=== PATIENT | female | born 1995 | race Caucasian/White ===

== ENCOUNTER 2016-10-27 19:14 | Emergency (ER) | payer OTHER ==
[2016-10-27 19:32] VITALS: BP 124/76
--- NOTE | 2016-10-27 20:42 | UC ---
Throat Pain/Nasal Lui HPI - History of Current Complaint Chief Complaint: UCRespiratory Stated Complaint: SORE THROAT Time Seen by Provider: 10/27/16 20:34 Hx Obtained From: Patient Hx Last Menstrual Period: 10/09/16 ?: No Onset/Duration: Sudden Onset, Lasting Days - 3, Worse Since - yesterday. Severity: Moderate Cough: Nonproductive Associated Signs & Symptoms: Positive: Dysphagia, Hoarseness, Fever. Negative: Sinus Discomfort, Nasal Discharge, Rash - Epiglottits Risk Factors Epiglottis Risk Factors: Negative - Allergies/Home Medications Allergies/Adverse Reactions: Allergies Allergy/AdvReac Type Severity Reaction Status Date / Time No Known Allergies Allergy Verified 10/27/16 19:32 Home Medications: Home Medications Amphetamine-Dextroamphetamine [Adderall 10 mg-] 1 tab PO 0700 10/27/16 [History Confirmed 10/27/16] Amphetamine-Dextroamphetamine [Adderall 10 mg-] 2 tab PO 1200 10/27/16 [History Confirmed 10/27/16] PMH/Surg Hx/FS Hx/Imm Hx Endocrine History Of: Reports: Thyroid Disease - hypothyroid - Surgical History Surgical History: Yes Surgery Procedure, Year, and Place: left ACL repair - Family History Known Family History: Positive: Diabetes Negative: Cardiac Disease, Hypertension - Social History Occupation: Student Lives: Alone Alcohol Use: Weekly Substance Use Type: None Smoking Status (MU): Never Smoked Tobacco Review of Systems Constitutional: Fever ENT: Sore Throat Respiratory: Cough All Other Systems Reviewed And Are Negative: Yes Physical Exam Triage Information Reviewed: Yes Appearance: No Pain Distress, Well-Nourished, Ill-Appearing - mildly Vital Signs: Initial Vital Signs Temp 98.1 F 10/27/16 19:26 Pulse 56 10/27/16 19:26 Resp 12 10/27/16 19:26 BP 124/76 10/27/16 19:26 Pulse Ox 96 10/27/16 19:26 Vital Signs Reviewed: Yes Eye Exam: Normal ENT: Positive: Pharynx normal, TMs normal Neck exam: Normal Respiratory: Positive: Lungs clear Cardiovascular Exam: Normal Musculoskeletal Exam: Normal Neurological Exam: Normal Psychological Exam: Normal Skin Exam: Normal Throat Pain/Nasal Course/Dx - Differential Dx/Diagnosis Differential Diagnosis/HQI/PQRI: Laryngitis, Pharyngitis, URI Provider Diagnoses: Acute URI. Acute laryngitis. Discharge - Discharge Plan Condition: Stable Disposition: HOME Prescriptions: predniSONE TAB* [Deltasone TAB*] 20 mg PO DAILY #18 tab Patient Education Materials: Upper Respiratory Infection (ED), Laryngitis (ED) , Prednisone (By mouth)
[2016-10-27] MEDS ORDERED: predniSONE TAB* 20 MG PO ONE (20:44)
== END 2016-10-27 20:51 | disposition home or self-care (01) ==
LOC: UCCORT 19:14
DX: J06.9 Acute upper respiratory infection, unspecified (principal); J04.0 Acute laryngitis
CPT/HCPCS: 87651; 99212; G0463; J7512

== ENCOUNTER 2018-11-25 16:25 | Emergency (ER) | payer OTHER ==
[2018-11-25 17:26] VITALS: BP 119/72
[2018-11-25 17:42] LABS: Influenza B Molecular POSITIVE (Negative)
--- NOTE | 2018-11-25 18:52 | UC ---
FLU HPI - HPI Summary HPI Summary: Patient has been ill since yesterday with flulike symptoms, fever, chills, body aches, sore throat, dry cough. Patient states that she has had mononucleosis 5 times in the past and has a chronic pain around the spleen area. She states she is under a doctor's care for this and is actually scheduled for a sonogram in the next few days of that area. She states today that hurts a little more than usual. - History of Current Complaint Chief Complaint: UCGeneralIllness Stated Complaint: HEADACHE COUGH ACHY Time Seen by Provider: 11/25/18 17:21 Hx Obtained From: Patient Hx Last Menstrual Period: 10/2018 ?: No Onset/Duration: Sudden Onset Severity Currently: Moderate Severity Initially: Moderate Pain Intensity: 4 Pain Scale Used: 0-10 Numeric Associated Signs & Symptoms: Positive: Fever, Myalgia, Cough, Sore Throat, Nasal Congestion, Headache Related Hx: Possible Flu/Infectious Exposure - Allergy/Home Medications Allergies/Adverse Reactions: Allergies Allergy/AdvReac Type Severity Reaction Status Date / Time No Known Allergies Allergy Verified 11/25/18 17:24 Home Medications: Home Medications D-Methorphan/PE/Acetaminophen [Daytime Cold-Flu Liquid] 1 dose PO ONCE PRN 11/25 [History Confirmed 11/25/18] Escitalopram * [Lexapro *] 15 mg PO DAILY 11/25/18 [History Confirmed 11/25/18] PMH/Surg Hx/FS Hx/Imm Hx Previously Healthy: Yes - Surgical History Surgical History: Yes Surgery Procedure, Year, and Place: left ACL repair. wisdom teeth - Family History Known Family History: Positive: Diabetes Negative: Cardiac Disease, Hypertension - Social History Occupation: Student Alcohol Use: Occasionally Substance Use Type: Marijuana Substance Use Comment - Amount & Last Used: occasional Smoking Status (MU): Never Smoked Tobacco Review of Systems All Other Systems Reviewed And Are Negative: Yes Constitutional: Positive: Fever, Chills ENT: Positive: Sore Throat, Nasal Discharge Respiratory: Positive: Cough - Dry cough Musculoskeletal: Positive: Myalgia Is Patient Immunocompromised?: No Physical Exam Triage Information Reviewed: Yes Appearance: No Pain Distress, Well-Nourished, Ill-Appearing Vital Signs: Initial Vital Signs Temp 101.6 F 11/25/18 17:22 Pulse 111 11/25/18 17:22 Resp 18 05/01/19 17:22 BP 119/72 11/25/18 17:22 Pulse Ox 100 11/25/18 17:22 Vital Signs Reviewed: Yes Eye Exam: Normal ENT: Positive: Hearing grossly normal, Pharynx normal, Nasal congestion, Nasal drainage, TMs normal, Uvula midline Neck: Positive: Supple, Nontender, No Lymphadenopathy Respiratory: Positive: Lungs clear, Normal breath sounds, No respiratory distress, No accessory muscle use Cardiovascular: Positive: No Murmur, Pulses Normal, Brisk Capillary Refill, Tachycardia Abdomen Description: Positive: Nontender, No Organomegaly, Soft Bowel Sounds: Positive: Present Musculoskeletal Exam: Normal Neurological Exam: Normal Psychological Exam: Normal Skin Exam: Normal Flu Course/Dx - Course Course Of Treatment: Rapid flu test was positive for influenza B. I would treat patient with Tamiflu. No work until Friday. - Differential Dx/Diagnosis Provider Diagnosis: Influenza Discharge - Sign-Out/Discharge Documenting (check all that apply): Patient Departure All imaging exams completed and their final reports reviewed: No Studies - Discharge Plan Condition: Fair Disposition: HOME Prescriptions: Oseltamivir CAP* [Tamiflu CAP*] 75 mg PO BID 5 Days #10 cap Patient Education Materials: Influenza (DC) Referrals: [facility] [Outside] No Primary Care Phys,NOPCP [Primary Care Provider] - Additional Instructions: Go home and rest, increase fluids, may take Tylenol every 4 hours and Motrin every 8 hours with food. Follow up at your primary care provider's or [facility] if no improvement in 3 or 4 days. Go to the emergency room for any worsening symptoms. - Billing Disposition and Condition Condition: FAIR Disposition: Home
== END 2018-11-25 17:56 | disposition home or self-care (01) ==
LOC: UCCORT 16:25
DX: J11.1 Influenza due to unidentified influenza virus with other respiratory manifestations (principal); R05 Cough; R50.9 Fever, unspecified; M79.10 Myalgia, unspecified site; R09.81 Nasal congestion
CPT/HCPCS: 99212; G0463

== ENCOUNTER 2018-11-30 20:18 | Emergency (ER) | payer OTHER ==
[2018-11-30 20:39] VITALS: BP 123/85
[2018-11-30] MEDS ORDERED: Albuterol 2.5 MG/3 ML NEB.SOL* (0.083%) INH ONE (20:44)
--- NOTE | 2018-11-30 20:50 | UC ---
UC General HPI - HPI Summary HPI Summary: dx with flu 11/25/18 and tx with Tamiflu. returns with a sore throat, swollen glands and worsening cough with congestion. + sob and wheezing. no hx asthma. - History of Current Complaint Chief Complaint: UCRespiratory Stated Complaint: COUGH,SORE THROAT Time Seen by Provider: 11/30/18 20:39 Hx Obtained From: Patient Hx Last Menstrual Period: "ABOUT A MONTH AGO" Onset/Duration: Gradual Onset Timing: Constant Pain Intensity: 5 Associated Signs & Symptoms: Negative: Chest Pain - Allergy/Home Medications Allergies/Adverse Reactions: Allergies Allergy/AdvReac Type Severity Reaction Status Date / Time No Known Allergies Allergy Verified 11/30/18 20:34 PMH/Surg Hx/FS Hx/Imm Hx - Additional Past Medical History Additional PMH: ADHD Endocrine History: Thyroid Disease Psychological History: Depression - Surgical History Surgical History: Yes Surgery Procedure, Year, and Place: left ACL repair. wisdom teeth - Family History Known Family History: Positive: Diabetes Negative: Cardiac Disease, Hypertension - Social History Occupation: Student Alcohol Use: Occasionally Substance Use Type: Marijuana Substance Use Comment - Amount & Last Used: occasional Smoking Status (MU): Never Smoked Tobacco - Immunization History Vaccination Up to Date: Yes Review of Systems All Other Systems Reviewed And Are Negative: Yes ENT: Positive: Sore Throat Respiratory: Positive: Shortness Of Breath, Cough Physical Exam Triage Information Reviewed: Yes Appearance: Well-Appearing Vital Signs: Initial Vital Signs Temp 98.1 F 11/30/18 20:35 Pulse 80 11/30/18 20:35 Resp 16 11/30/18 20:35 BP 123/85 11/30/18 20:35 Pulse Ox 99 11/30/18 20:35 Vital Signs Reviewed: Yes Eyes: Positive: Conjunctiva Clear ENT: Positive: Pharyngeal erythema - mild, TMs normal, Uvula midline. Negative : Nasal congestion, Nasal drainage, Trismus, Muffled voice, Hoarse voice Neck: Positive: Supple, Tenderness @ - peritonsilar nodes, Enlarged Nodes @ - peritonsilar nodes Respiratory: Positive: Lungs clear, No respiratory distress, Decreased breath sounds - slight, Other: - cough is congested. Negative: Crackles, Rhonchi Cardiovascular: Positive: RRR, No Murmur Abdomen Description: Positive: Nontender, No Organomegaly, Soft Bowel Sounds: Positive: Present Musculoskeletal: Positive: ROM Intact Neurological: Positive: Alert Psychological: Positive: Age Appropriate Behavior Skin Exam: Normal Diagnostics - Laboratory Lab Results: rapid strep=negative - Radiology No standard instances Radiology Interpretation Completed By: ED Physician - cxr=nad Re-Evaluation - Re-Evaluation First Eval Re-Evaluation Time: 19:15 Change: Improved - MUCH BETTER AERATION. PT NOTES CONGESTION IS MUCH MORE LOOSE AND SHE IS ABLE TO CLEAR IT. Course/Dx - Differential Dx - Multi-Symptom Differential Diagnoses: Other - non toxic. not hypoxic. cxr=nad. rapid strep= negative. - Diagnoses Provider Diagnosis: Pharyngitis, Bronchitis Discharge - Sign-Out/Discharge Documenting (check all that apply): Patient Departure All imaging exams completed and their final reports reviewed: No - Discharge Plan Condition: Stable Disposition: HOME Prescriptions: Albuterol HFA INHALER* [Ventolin HFA Inhaler*] 2 puff INH Q6H #1 mdi predniSONE [Prednisone 20 MG TAB] 40 mg PO DAILY 4 Days #8 tablet Patient Education Materials: Pharyngitis (ED), Acute Bronchitis (ED) Referrals: ELADIO VOSS [, APPLICATION, OTHER] - 4 Days - Billing Disposition and Condition Condition: STABLE Disposition: Home
[2018-11-30] MEDS ORDERED: predniSONE TAB* 20 MG PO ONE (21:14)
--- NOTE | 2018-12-01 14:10 | UC ---
- Progress Note Progress Note: chest xray report : IMPRESSION: No active cardiopulmonary disease is noted. Course/Dx - Diagnoses Provider Diagnoses: Pharyngitis, Bronchitis Discharge - Sign-Out/Discharge Documenting (check all that apply): Patient Departure All imaging exams completed and their final reports reviewed: Yes - Discharge Plan Condition: Stable Disposition: HOME Prescriptions: Albuterol HFA INHALER* [Ventolin HFA Inhaler*] 2 puff INH Q6H #1 mdi predniSONE [Prednisone 20 MG TAB] 40 mg PO DAILY 4 Days #8 tablet Patient Education Materials: Pharyngitis (ED), Acute Bronchitis (ED) Referrals: ELADIO VOSS [, APPLICATION, OTHER] - 4 Days - Billing Disposition and Condition Condition: STABLE Disposition: Home
== END 2018-11-30 21:39 | disposition home or self-care (01) ==
LOC: UCCORT 20:18
DX: J40 Bronchitis, not specified as acute or chronic (principal); J02.9 Acute pharyngitis, unspecified; R05 Cough; F90.9 Attention-deficit hyperactivity disorder, unspecified type; E07.9 Disorder of thyroid, unspecified; F32.9 Major depressive disorder, single episode, unspecified
CPT/HCPCS: 71046; 87651; 99212; G0463; J7512